=== PATIENT | male | born 1970 | race Caucasian/White ===

== ENCOUNTER 2023-11-08 17:30 | Emergency (ER) | payer OTHER, BC ==
[2023-11-08 17:52] VITALS: BP 126/71; PULSE 76; RESP 16; TEMP 98.5; BMI 30.5
[2023-11-08] MEDS ORDERED: KETOROLAC TROMETHAMINE 15 MG/ML VIAL IM ONE (17:56)
[2023-11-08] MEDS ORDERED: LIDOCAINE 4% PATCH TP ONE ×2 (17:57→17:59)
[2023-11-08] MEDS ORDERED: KETOROLAC TROMETHAMINE 15 MG/ML VIAL ONE (17:59)
[2023-11-08] MEDS ORDERED: LIDOCAINE PATCH REMOVAL MC ONE (22:00)
== END 2023-11-08 19:06 | disposition home or self-care (01) ==
LOC: JER 17:30
PROC: 3E0233Z Introduction of Anti-inflammatory into Muscle, Percutaneous Approach (ICD-10-PCS; principal; 2023-11-08)
DX: M25.511 Pain in right shoulder (principal)
CPT/HCPCS: 73030-TC-RT-FY; 99284-25